=== PATIENT | female | born 1985 | race Caucasian/White ===

== ENCOUNTER 2024-06-24 10:55 | Outpatient (CLI) | payer OTHER, SELFPAY ==
[2024-06-24 23:11] LABS: Chlamydia DNA Amplified* NOT DETECTED (No Detected); GC DNA Amplified* NOT DETECTED (No Detected)
[2024-06-27 11:40] LABS: HPV Source Cervix; HPV, High Risk by TMA Not Detected
== END 2024-06-24 10:56 | disposition home or self-care (01) ==
PROVIDERS: PCP Physician Assistant Medical; Visit Provider Physician Assistant Medical
DX: Z00.00 Encounter for general adult medical examination without abnormal findings (principal); Z01.42 Encounter for cervical smear to confirm findings of recent normal smear following initial abnormal smear; Z11.3 Encounter for screening for infections with a predominantly sexual mode of transmission
CPT/HCPCS: 87491; 87591; 87624; 87625; 88141; 88142

== ENCOUNTER 2024-07-09 08:43 | Outpatient (CLI) | payer OTHER, SELFPAY | END 2024-07-09 08:44 | disposition home or self-care (01) | LOC: NFLDREF 07-10 11:54 | PROVIDERS: PCP Physician Assistant Medical; Visit Provider Physician Assistant Medical | DX: Z00.00 Encounter for general adult medical examination without abnormal findings (principal); Z13.6 Encounter for screening for cardiovascular disorders; Z13.29 Encounter for screening for other suspected endocrine disorder; Z11.59 Encounter for screening for other viral diseases; Z11.3 Encounter for screening for infections with a predominantly sexual mode of transmission | CPT/HCPCS: 80053; 80061; 84443; 86703; 86803 ==